=== PATIENT | female | born 2000 | race African-American/Black ===

== ENCOUNTER 2022-02-03 22:18 | Emergency (ER) | payer BC, MEDICAID, SELFPAY ==
--- NOTE | ~2022-02-03 | XR_ITS ---
EXAMINATION: XR KNEE, RIGHT CLINICAL INFORMATION: Fall. Pain. COMPARISON: None TECHNIQUE: Four views of the right knee. FINDINGS: Bones and soft tissues are normal. No fracture or joint effusion. Alignment is anatomic. Joint spaces are well maintained. No abnormal soft tissue calcification. XR/XR knee RT 4V IMPRESSION: Normal right knee.
[2022-02-03 22:39] VITALS: BP 154/90; PULSE 86; RESP 16; TEMP 37.1; O2SAT 100; BMI 35.4
--- NOTE | 2022-02-04 00:35 | ED_ITS ---
HPI - General Adult General Chief complaint: Extremity Injury, Lower Stated complaint: Knee injury Time Seen by Provider: 02/04/22 00:24 Source: patient Limitations: no limitations History of Present Illness HPI narrative: This is a 21-year-old female who is through 4 days ago had slipped while walking in the rain and twisted her right knee. She is not sure exactly the mechanism but she has had pain in her right knee since, worse with knee extension. She says she initially had swelling. She did not fall down. She denies any numbness or weakness to her right leg or foot. She has not tried any medicine such as ibuprofen or Tylenol Related Data Allergies Allergy/AdvReac Type Severity Reaction Status Date / Time aspirin AdvReac Unknown Verified 02/03/22 22:43 ibuprofen AdvReac Unknown Verified 02/03/22 22:43 Review of Systems Review of Systems: As per HPI Musculoskeletal: Comments: Right knee pain Integumentary/Breasts: Skin/Breast: Reports system reviewed and no additional complaints, except as docu Neurologic: Reports system reviewed and no additional complaints, except as documented [facility] Social History Social History Advance Directives: No Advance Directives Information Provided: No Physical Exam ED Vital Signs: Vital Signs - 24 hr 02/03/22 22:39 Temperature 98.7 F Pulse Rate 86 Respiratory Rate 16 Blood Pressure 154/90 H Pulse Oximetry 100 Oxygen Delivery Method Room Air BMI result Body Mass Index 35.4 Const General: healthy appearing Resp Effort & Inspection: normal respiratory effort Auscultation: clear to auscultation bilaterally Cardio Rate: regular rate Rhythm: regular rhythm Heart sounds: S1 normal heart sound present and S2 normal heart sound present Extrem Other: Right knee without joint effusion. Mild tenderness over the patella and anterior inferior knee. No posterior knee tenderness. No tenderness on valgus or varus strain. Tenderness upon knee flexion. Patient up to straight leg raise. Course Course Course Narrative: Patient was fitted with a right knee immobilizer, and given acetaminophen 650 mg p.o. (patient has a allergy/intolerance to NSAIDs) Medical Decision Making Imaging Data Right knee x-ray: Radiologist's impression: No acute pathology Discharge Plan Discharge Clinical Impression: Right knee sprain Patient Disposition: Home, Self-Care Instructions: Knee Sprain (ED) Additional Instructions: Use the knee immobilizer, and take acetaminophen for pain 650 mg every 4-6 hours as needed. Follow up with Orthopedics if not improved in 5-7 days Referrals: Manoj Chapa MD [Physician] -
[2022-02-04] MEDS: Acetaminophen 325 MG TABLET 650 MG PO (00:44)
== END 2022-02-04 00:53 | disposition home or self-care (01) ==
PROVIDERS: Emergency Provider Emergency Medicine; PCP Internal Medicine
DX: S83.91XA Sprain of unspecified site of right knee, initial encounter (principal); X58.XXXA Exposure to other specified factors, initial encounter; Y93.9 Activity, unspecified; Y92.9 Unspecified place or not applicable; Y99.9 Unspecified external cause status
CPT/HCPCS: 73564; 99283